=== PATIENT | female | born 1950 | race Caucasian/White ===

== ENCOUNTER → 2019-05-11 | Outpatient (CLI) | payer MEDICARE ==
[~2019-05-11] MED LIST: HYDACE5 PO
[2019-05-11 19:30] LABS: U Amphetamine Screen Not Detected; U Barbituate Screen Not Detected; U Benzodiazapine Screen Not Detected; U Buprenorphine Screen Not Detected; U Cannabinoids Screen Not Detected; U Cocaine Screen Not Detected; U Methadone Screen Not Detected; U Methamphetamine Screen Not Detected; U Opiates Screen Not Detected; U Oxycodone Screen Not Detected; U Propoxyphene Screen Not Detected
== END ==
LOC: LAB SHORT 17:19 → LAB 17:19
PROVIDERS: Registered Nurse
DX: Z51.81 Encounter for therapeutic drug level monitoring (principal); Z79.899 Other long term (current) drug therapy

== ENCOUNTER 2024-04-26 14:02 | Emergency (ER) | payer OTHER ==
[~2024-04-26] VITALS: Ht 160 cm; Wt 54.4 kg
[~2024-04-26 14:02] MED LIST changes: +ALEN70 PO; +Aspir 8181 MG PO; +CLON.5 PO; +CLOP75 PO; +Crestor40 MG PO; +DILTIAZEM 24HR120 M4 PO; +LAMO100 PO; +LOSARTAN-HCTZ1 EACH PO; +Norco 5-325 Ta1 EACH PO; +OMEP20ER PO; +QUET25 PO; +REMERON1510 PO
[2024-04-26] MEDS ORDERED: Ondansetron HCl 2 MG / ML 2ML Vial IV ONE (14:10)
[2024-04-26] MEDS ORDERED: HYDROmorphone HCl/Pf 1MG SYR IV ONE ×2 (14:10→15:30)
[2024-04-26] MEDS ORDERED: propofoL 100 ML IV SCH (14:30)
[2024-04-26] MEDS ORDERED: NS 1,000 ML IV ONE (14:42)
[2024-04-26] MEDS ORDERED: Percocet 5-3251 EACH PO (15:01)
[2024-04-26] MEDS ORDERED: OxyCODONE 7.5 mg/Acetam 325 mg TABLET PO ONE (17:30)
[2024-04-26 17:44] VITALS: BP 188/83
== END 2024-04-26 18:18 | disposition home or self-care (01) ==
LOC: ER 14:02
DX: S42.291A Other displaced fracture of upper end of right humerus, initial encounter for closed fracture (principal); Z88.8 Allergy status to other drugs, medicaments and biological substances; Z79.83 Long term (current) use of bisphosphonates; Z79.82 Long term (current) use of aspirin; Z79.899 Other long term (current) drug therapy; Z79.01 Long term (current) use of anticoagulants; Z87.891 Personal history of nicotine dependence; Z59.89 Other problems related to housing and economic circumstances; W01.198A Fall on same level from slipping, tripping and stumbling with subsequent striking against other object, initial encounter
CPT/HCPCS: 23655; 73020; 73030; 73200; 96374; 96375; 96376; 99284-25; A9270; J1171; J2405; J2704; J7030

== ENCOUNTER 2024-05-03 19:35 | Emergency (ER) | payer OTHER ==
[~2024-05-03] VITALS: Ht 160 cm; Wt 54.4 kg
[~2024-05-03 19:35] MED LIST changes: +Percocet 5-3251 EACH PO
[2024-05-03] MEDS ORDERED: Propofol 10mg/ml 20 ml Vial (Procedural) IV SCH (20:10)
[2024-05-03] MEDS ORDERED: Morphine Sulfate 4 MG/1 ML Injection IV ONE (20:10)
[2024-05-03] MEDS ORDERED: NS 1,000 ML IV ONE (20:45)
[2024-05-03] MEDS ORDERED: NS 1,000 ML IV SCH (21:35)
[2024-05-03 21:45] VITALS: BP 159/84
== END 2024-05-03 22:04 | disposition home or self-care (01) ==
LOC: ER 19:35
DX: S43.014A Anterior dislocation of right humerus, initial encounter (principal); W01.0XXA Fall on same level from slipping, tripping and stumbling without subsequent striking against object, initial encounter; Z88.0 Allergy status to penicillin; Z88.8 Allergy status to other drugs, medicaments and biological substances; Z79.82 Long term (current) use of aspirin; Z79.899 Other long term (current) drug therapy; Z87.891 Personal history of nicotine dependence
CPT/HCPCS: 23650; 73030; 96374-59; 99152; 99153; 99283-25; J2270; J2704; J7030

== ENCOUNTER → 2024-05-19 | Outpatient (CLI) | payer OTHER ==
[2024-05-21 12:00] LABS: Stool Occult Bld Immuno 1 Negative (NEGATIVE)
== END ==
LOC: LAB 15:11 → LAB SHORT 15:11
PROVIDERS: Physician Assistant
DX: D50.8 Other iron deficiency anemias (principal)
CPT/HCPCS: 82274

== ENCOUNTER → 2024-11-22 | Outpatient (CLI) | payer OTHER ==
[2024-11-22 13:18] LABS: Anion Gap 16.0 mmol/L (6-16); Blood Urea Nitrogen 9.0 mg/dL (8-24); CO2, Blood 27.0 mmol/L (21-32); Calcium, Blood 9.2 mg/dL (8.5-10.1); Chloride, Blood 94.0 mmol/L (98-108); Creatinine, Blood 0.87 mg/dL (0.40-1.00); Glucose, Blood 108.0 mg/dL (70-99); Potassium, Blood 5.5 mmol/L (3.5-5.5); Sodium, Blood 131.0 mmol/L (136-145)
== END | disposition home or self-care (01) ==
LOC: LAB 12:15 → LAB SHORT 12:15
PROVIDERS: Physician Assistant
DX: I10 Essential (primary) hypertension (principal)
CPT/HCPCS: 36415; 80048